=== PATIENT | male | born 1980 | race Caucasian/White ===

== ENCOUNTER 2017-05-13 13:00 | Emergency (ER) | payer MEDICAID ==
[~2017-05-13] VITALS: Ht 175.3 cm; Wt 96.2 kg
[~2017-05-13 13:00] MED LIST: HYDR1TAB PO
--- NOTE | 2017-05-13 14:07 | ED General ---
General Chief Complaint: Bite-Animal/Human/Insect Stated Complaint: DOG BITE TO GENITALS/BLEEDING Nursing Triage Note: Pt reports he was mowing a friend's yard when an unknown dog jumped up and bit his genitals. Pt does not know this dog. Pt states he did not notice bite at the time of occurrence, his roommate at the nursing home where he lives noted blood on his jeans several hours later and pt looked and noticed bite katz. Bleeding controlled upon arrival to ED. Nursing Sepsis Screen: No Definite Risk Source of Information: Patient Exam Limitations: No Limitations (RANGEL GAMBLE) History of Present Illness Time Seen by Provider: 14:07 Initial Comments 36 yo male patient presents to the ED with c/o dog bite to the scrotum. States he was mowing a friend's yard when an unknown dog jumped up and bit his genitals. Initially did not realize he had an injury. States when he went inside a roommate noticed blood on the patient's jeans. staff weapons officer Cecil Yang states patient is unable to give a description of the dog or exactly what part of town the dog was in. Officer Celia is skeptical that he will be able to locate the dog due to poor history from patient. Timing/Duration: 4-6 Hours Severity: Mild (RANGEL GAMBLE) Allergies and Home Medications Allergies Coded Allergies: No Known Drug Allergies (Unverified Allergy, Mild, 09/17/09) Home Medications Amoxicillin/Potassium Clav 1 Each Tablet, 1 EACH PO BID, #14 Ref 0 Prescribed by: RANGEL GAMBLE on 05/13/17 142 Mupirocin Calcium 15 Gm Cream..g., 15 GM TP UD, #1 Ref 0 Apply to the affected area twice daily for 7-10 days. Prescribed by: RANGEL GAMBLE on 05/13/17 1426 Constitutional: no symptoms reported Gastrointestinal: No abdominal pain, No diarrhea, No loss of appetite, No nausea, No vomiting Genitourinary: see HPI, No discharge, No dysuria, No frequency, No hematuria, No pain Musculoskeletal: no symptoms reported Skin: see HPI, other (dog bite to the scrotum) Psychiatric/Neurological: No Symptoms Reported (RANGEL GAMBLE) All Other Systems Reviewed Negative Unless Noted: Yes (Negative excepted noted.) (RANGEL GAMBLE) Past Icvmwrz-Losjop-Yxbxmj Hx Patient Social History Alcohol Use: Rarely Uses Recreational Drug Use: No Smoking Status: Current Someday Smoker Type Used: Cigars Recent Foreign Travel: No Contact w/Someone Who Travel: No Recent Infectious Disease Expo: No Recent Hopitalizations: No (RANGEL GAMBLE) Immunizations Up To Date Tetanus Booster (TDap): More than 5yrs (patient refuses tetanus booster.) (RANGEL GAMBLE) Seasonal Allergies Seasonal Allergies: No (RANGEL GAMBLE) Surgeries HX Surgeries: No (RANGEL GAMBLE) Respiratory Hx Respiratory Disorders: Yes (RANGEL GAMBLE) Cardiovascular Hx Cardiac Disorders: No (RANGEL GAMBLE) Neurological Hx Neurological Disorders: No (RANGEL GAMBLE) Genitourinary Hx Genitourinary Disorders: No (RANGEL GAMBLE) Gastrointestinal Hx Gastrointestinal Disorders: No (RANGEL GAMBLE) Musculoskeletal Hx Musculoskeletal Disorders: No (RANGEL GAMBLE) Psychosocial Hx Psychiatric Problems: Yes (RANGEL GAMBLE) Integumentary HX Skin/Integumentary Disorder: No (RANGEL GAMBLE) Reviewed Nursing Assessment Reviewed/Agree w Nursing PMH: Yes (RANGEL GAMBLE) Family Medical History Significant Family History: No Pertinent Family Hx (RANGEL GAMBLE) Physical Exam Vital Signs Vital Sign - Last 12Hours 05/13/17 13:07 Temp 99.2 Pulse 88 Resp 18 B/P (MAP) 149/84 Pulse Ox 95 O2 Delivery Room Air (ASTER DOMINGUEZ MD) Vital Signs Capillary Refill : Less Than 3 Seconds (RANGEL GAMBLE) General Appearance: No Apparent Distress, WD/WN Respiratory: Lungs Clear, Normal Breath Sounds, No Respiratory Distress Cardiovascular: Regular Rate, Rhythm, No Murmur, Normal Peripheral Pulses Gastrointestinal: Normal Bowel Sounds, No Organomegaly, Non Tender, Soft Genital/Rectal: No Blood at Uretheral Meatus, Other (small abrasion noted on the rt anterior scrotum. small puncture noted on the anterior left scrotum with a 1.5 cm superficial partial thickness laceration of the left lateral scrotum. no evidence of testicular injury. no active bleeding or tenderness noted. ) Back: Normal Inspection Extremity: Normal Capillary Refill, Normal Inspection Neurologic/Psychiatric: Alert, Oriented x3, Normal Mood/Affect Skin: Normal Color, Warm/Dry, Other (small abrasion noted on the rt anterior scrotum. small puncture noted on the anterior left scrotum with a 1.5 cm superficial partial thickness laceration of the left lateral scrotum. no evidence of testicular injury. no active bleeding or tenderness noted. ) ( RANGEL GAMBLE) Progress/Results/Core Measures Results/Orders Blood Pressure Mean: 105 Progress Note : Progress Note Patient seen with EFRA Parekh. Patient has a puncture type wounds to the scrotum on the left side with one small superficial laceration as described. Patient does not know where the dog came from that bit him and law enforcement is unable to find the dog. Rabies vaccination is recommended as well as tetanus vaccination. Patient adamantly refused both. I did discuss with him the concerns related to rabies and he states that he will take his chances. We will use topical antibiotic and oral antibiotic for the wounds. Patient states she will do that. Discharged as per EFRA Parekh. (ASTER DOMINGUEZ MD) Departure Communication Progress Notes Patient seen and evaluated with tenderness Dr. Terrence M.D. Patient refuses rabies immunoglobulin, rabies vaccination, and tetanus vaccination. States he is afraid of needles. All risks, benefits, and possible consultations associated with not receiving tetanus and rabies vaccinations were discussed with the patient and his family caseworker. Patient continues to decline vaccinations. family services manager discussed patient's refusal with his guardian. Guardian does not want rabies and tetanus injections given if patient refuses them. Patient given outpatient orders for rabies vaccination and tetanus booster if he decides he would like to receive these after dsch from the ED. (RANGEL GAMBLE) Impression Impression: Primary Impression: Dog bite Qualified Codes: W54.0XXA - Bitten by dog, initial encounter Disposition: 01 HOME, SELF-CARE Condition: Improved Departure-Patient Inst. Decision time for Depature: 14:21 (RANGEL GAMBLE) Referrals: YAZ ANGELO (PCP/Family) Primary Care Physician Patient Instructions: Animal Bites (DC), Rabies (DC), Rabies Vaccine Add. Discharge Instructions: All discharge instructions reviewed with patient and/or family. Voiced understanding. Medications as instructed. Tylenol extra strength tqio-lzu-[id number] as directed for pain. Ibuprofen 800 mg by mouth every 8 hours as needed for pain. Rabies vaccination today worse and is possible. Repeat rabies vaccination on day 3 (05/16/17); day 7 (05/20/17); and day 14 (05/27/17). Tetanus vaccination as soon as possible. Follow-up with Clementina Angelo APRN as an outpatient for recheck. Call for appointment time. Return to the emergency department for worsened pain, redness, fever, drainage, difficulty with urination, blood in the urine, changes in behavior, paralysis, difficulty drinking, choking, numbness, itching, hallucinations, agitation, difficulty walking, confusion, or any other concerns. Scripts Mupirocin Calcium (Bactroban) 15 Gm Cream..g. 15 GM TP UD, #1 TUBE 0 Refills Apply to the affected area twice daily for 7-10 days. Prov: RANGEL GAMBLE 05/13/17 Amoxicillin/Potassium Clav (Augmentin 875-125 Tablet) 1 Each Tablet 1 EACH PO BID, #14 TAB 0 Refills Prov: RANGEL GAMBLE 05/13/17 RANGEL GAMBLE May 13, 2017 14:07 ASTER DOMINGUEZ MD May 15, 2017 17:04
[2017-05-13] MEDS ORDERED: MUPI15CR TP (14:26)
[2017-05-13] MEDS ORDERED: AMOX-358 PO (14:26)
[2017-05-13 14:32] VITALS: BP 145/80
--- OUTSIDE RECORDS SUMMARY | 2017-05-23 19:22 | XMS REPORT | Continuity of Care Document ---
Author Author [facility] Address Unknown Phone Unavailable Allergies Active Description Code Type Severity Reaction Onset Reported/Identified Relationship to Patient Clinical Status Yes No Known Drug Allergies [id number] Drug Allergy Mild N/A 09/17/2009 Medications Problems Date Dx Coded Attending Type Code Diagnosis [facility] 06/28/2009 [facility], CECI R 462 PHARYNGITIS ACUTE 09/19/[facility] V70.3 SPORTS/SCHOOL EXAM 09/19/2009 [facility], CECI R V70.3 SPORTS/SCHOOL EXAM 08/23/2010 [facility], CECI R V20.2 WELL CHILD 08/23/2010 [facility], CECI R V20.2 WELL CHILD 08[facility]11/[facility]9 AD ADJ D/O NOS 08/11/2013 [facility]9 AD ADJ D/O NOS Procedures Code [place] [address] PSYCH DIAGNOSTIC EVALUATION 08/12/2013 Results Encounters ACCT No. Visit Date/Time Discharge Status Pt. Type Provider Facility Loc./Unit Complaint [id number] 09/23/2013 13:59:00 09/23/2013 23: 59:59 [facility] Outpatient CECI NORIEGA [id number] 08/11/2013 09:49:00 08/11/2013 23: 59:59 [facility] Outpatient JOSE CECI ADKINS
== END 2017-05-13 14:34 | disposition home or self-care (01) ==
LOC: EDUNIT# 13:00 → ER 13:03
DX: S30.863A Insect bite (nonvenomous) of scrotum and testes, initial encounter (principal); F17.290 Nicotine dependence, other tobacco product, uncomplicated; W54.0XXA Bitten by dog, initial encounter; Y92.096 Garden or yard of other non-institutional residence as the place of occurrence of the external cause
CPT/HCPCS: 99283

== ENCOUNTER 2017-12-23 17:30 | Emergency (ER) | payer MEDICAID ==
[~2017-12-23] VITALS: Ht 182.9 cm; Wt 99.8 kg
[~2017-12-23 17:30] MED LIST changes: +AMOX-358 PO; +MUPI15CR TP
--- OUTSIDE RECORDS SUMMARY | 2017-12-23 17:36 | XMS REPORT | Continuity of Care Document ---
Author Author [facility] Address Unknown Phone Unavailable Allergies Active Description Code Type Severity Reaction Onset Reported/Identified Relationship to Patient Clinical Status Yes No Known Drug Allergies [id number] Drug Allergy Mild N/A 09/17/2009 Medications There is no data. Problems Date Dx Coded Attending Type Code Diagnosis Diagnosed By [facility]2009 [facility] PH[facility] ACUTE 06/28/2009 [facility], CECI R 462 PHARYNGITIS ACUTE 09/19/2009 [facility], CECI R V70.3 SPORTS/SCHOOL EXAM 09/19/2009 [facility], CECI R V70.3 SPORTS/SCHOOL EXAM 08/23/2010 [facility], CECI R V20.2 WELL CHILD 08/23/2010 [facility], CECI R V20.2 WELL CHILD 08/11/2013 [facility], CECI R 309.9 AD ADJ D/O NOS 08/11/2013 [facility], CECI R 309.9 AD ADJ D/O NOS 05/13/2017 RANGEL GHOSH Ot F17.290 NICOTINE DEPENDENCE, OTHER TOBACCO PRODU 05/13/2017 RANGEL GHOSH Ot S30.863A INSECT BITE (NONVENOMOUS) OF SCROTUM AND 05/13/2017 RANGEL GHOSH Ot W54.0XXA BITTEN BY DOG, INITIAL ENCOUNTER 05/13/2017 RANGEL GHOSH Ot 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 Encounters ACCT No. Visit Date/Time Discharge Status Pt. Type Provider Facility Loc./Unit Complaint [id number] 09/23/2013 13:59:00 09/23/2013 23:59:59 [id number] 08/11/2013 09:49:00 08/11/2013 23:59:59 [facility] [id number] 05/13/2017 13:03:00 05/13/2017 14:34:00 DIS Emergency RANGEL GHOSH [facility] ER DOG BITE TO GENITALS/ BLEEDING [id number] 03/03/2015 15:28:00 03/03/2015 23:59:59 CLS Preadmit ARACELI DEVLIN [facility] REHAB [id number] 02/23/2015 15:24:00 Document Registration
--- NOTE | 2017-12-23 17:43 | ED Chest Pain ---
General Stated Complaint: CP Source: patient Exam Limitations: no limitations History of Present Illness Date Seen by Provider: Dec 23, 2017 Time Seen by Provider: 17:41 Initial Comments To ER with major case detective from [place] support services with sharp chest pain began 40 minutes ago while walking to [employer] to eat dinner. Just prior to this he been helping a friend move some tables and he had 4 Smirnoffs to drink. Chest pain is gone now and he has no shortness of breath. He has no history of this. Timing/Duration: 1/2 hour Severity/Quality: moderate Radiation: no radiation Activities at Onset: none ASA po ENGINE MONITOR: No NTG SL ENGINE MONITOR: No Allergies and Home Medications Allergies Coded Allergies: No Known Drug Allergies (Unverified Allergy, Mild, 09/17/09) Home Medications Amoxicillin/Potassium Clav 1 Each Tablet, 1 EACH PO BID Prescribed by: RANGEL GAMBLE on 05/13/171425 Mupirocin Calcium 15 Gm Cream..g., 15 GM TP UD Apply to the affected area twice daily for 7-10 days. Prescribed by: RANGEL GAMBLE on 05/13/17 142 Patient Home Medication List Home Medication List Reviewed: Yes Review of Systems Constitutional: see HPI EENTM: No Symptoms Reported Respiratory: No Symptoms Reported Cardiovascular: No Symptoms Reported, See HPI, Chest Pain Gastrointestinal: No Symptoms Reported Genitourinary: No Symptoms Reported Musculoskeletal: no symptoms reported Skin: no symptoms reported Psychiatric/Neurological: No Symptoms Reported Endocrine: No Symptoms Reported Hematologic/Lymphatic: No Symptoms Reported Past Metnjvc-Ptvjwk-Hyiduu Hx Patient Social History Type Used: Cigars Recent Foreign Travel: No Contact w/Someone Who Travel: No Recent Hopitalizations: No Immunizations Up To Date Tetanus Booster (TDap): More than 5yrs Seasonal Allergies Seasonal Allergies: No Surgeries History of Surgeries: No Respiratory History of Respiratory Disorde: Yes (uses inhaler prn) Neurological History of Neurological Disord: No Genitourinary History of Genitourinary Disor: No Gastrointestinal History of Gastrointestinal Di: No Musculoskeletal History of Musculoskeletal Dis: No Endocrine History of Endocrine Disorders: No HEENT History of HEENT Disorders: No Cancer History of Cancer: No Psychosocial History of Psychiatric Problem: No Integumentary History of Skin or Integumenta: No Blood Transfusions History of Blood Disorders: No Family Medical History Significant Family History: No Pertinent Family Hx Physical Exam Vital Signs Capillary Refill : General Appearance: No Apparent Distress, WD/WN HEENT: PERRL/EOMI, TMs Normal Neck: Full Range of Motion, Normal Inspection Respiratory: Normal Breath Sounds, No Accessory Muscle Use, No Respiratory Distress Cardiovascular: Regular Rate, Rhythm, Normal Peripheral Pulses Gastrointestinal: Normal Bowel Sounds, Non Tender, Soft Neurologic/Psychiatric: Alert, Oriented x3, No Motor/Sensory Deficits Skin: Normal Color, Warm/Dry Progress/Results/Core Measures Results/Orders Lab Results Laboratory Tests Test 12/23/17 18:00 12/23/17 18:30 Range/Units White Blood Count 12.4 H 4.3-11.0 10^3/uL Red Blood Count 5.35 4.35-5.85 10^6/uL Hemoglobin 16.6 13.3-17.7 G/DL Hematocrit 48 40-54 % Mean Corpuscular Volume 89 80-99 FL Mean Corpuscular Hemoglobin 31 25-34 PG Mean Corpuscular Hemoglobin Concent 35 32-36 G/DL Red Cell Distribution Width 13.8 10.0-14.5 % Platelet Count 387 130-400 10^3/uL Mean Platelet Volume 9.0 7.4-10.4 FL Neutrophils (%) (Auto) 72 42-75 % Lymphocytes (%) (Auto) 18 12-44 % Monocytes (%) (Auto) 9 0-12 % Eosinophils (%) (Auto) 1 0-10 % Basophils (%) (Auto) 0 0-10 % Neutrophils # (Auto) 8.9 H 1.8-7.8 X 10^3 Lymphocytes # (Auto) 2.2 1.0-4.0 X 10^3 Monocytes # (Auto) 1.1 H 0.0-1.0 X 10^3 Eosinophils # (Auto) 0.2 0.0-0.3 10^3/uL Basophils # (Auto) 0.1 0.0-0.1 10^3/uL D-Dimer < 0.27 0.00-0.49 UG/ML Sodium Level 138 135-145 MMOL/L Potassium Level 3.8 3.6-5.0 MMOL/L Chloride Level 107 98-107 MMOL/L Carbon Dioxide Level 25 21-32 MMOL/L Anion Gap 6 5-14 MMOL/L Blood Urea Nitrogen 9 7-18 MG/DL Creatinine 0.83 0.60-1.30 MG/DL Estimat Glomerular Filtration Rate > 60 BUN/Creatinine Ratio 11 Glucose Level 83 70-105 MG/DL Calcium Level 9.0 8.5-10.1 MG/DL Total Bilirubin 0.5 0.1-1.0 MG/DL Aspartate Amino Transf (AST/SGOT) 23 5-34 U/L Alanine Aminotransferase (ALT/SGPT) 18 0-55 U/L Alkaline Phosphatase 65 40-136 U/L Troponin I < 0.30 <0.30 NG/ML Total Protein 7.6 6.4-8.2 GM/DL Albumin 4.1 3.2-4.5 GM/DL Serum Alcohol < 10 <10 MG/DL Urine Color YELLOW Urine Clarity CLEAR Urine pH 6 5-9 Urine Specific [place] 1.015 L 1.016-1.022 Urine Protein NEGATIVE NEGATIVE Urine Glucose (UA) NEGATIVE NEGATIVE Urine Ketones NEGATIVE NEGATIVE Urine Nitrite POSITIVE H NEGATIVE Urine Bilirubin NEGATIVE NEGATIVE Urine Urobilinogen NORMAL NORMAL MG/DL Urine Leukocyte Esterase 2+ H NEGATIVE Urine RBC (Auto) NEGATIVE NEGATIVE Urine RBC NONE /HPF Urine WBC 10-25 H /HPF Urine Squamous Epithelial Cells 2-5 /HPF Urine Crystals NONE /LPF Urine Bacteria LARGE H /HPF Urine Casts NONE /LPF Urine Mucus NEGATIVE /LPF Urine Culture Indicated YES Urine Opiates Screen NEGATIVE NEGATIVE Urine Oxycodone Screen NEGATIVE NEGATIVE Urine Methadone Screen NEGATIVE NEGATIVE Urine Propoxyphene Screen NEGATIVE NEGATIVE Urine Barbiturates Screen NEGATIVE NEGATIVE Ur Tricyclic Antidepressants Screen NEGATIVE NEGATIVE Urine Phencyclidine Screen NEGATIVE NEGATIVE Urine Amphetamines Screen NEGATIVE NEGATIVE Urine Methamphetamines Screen NEGATIVE NEGATIVE Urine Benzodiazepines Screen NEGATIVE NEGATIVE Urine Cocaine Screen NEGATIVE NEGATIVE Urine Cannabinoids Screen NEGATIVE NEGATIVE My Orders Orders - SIVAKUMAR TAMAYO DINKEY OPERATOR Cbc With Automated Diff (12/23/17 17:39) Comprehensive Metabolic Panel (12/23/17 17:39) Ua Culture If Indicated (12/23/17 17:39) Drug Screen Stat (Urine) (12/23/17 17:39) Alcohol (12/23/17 17:39) Troponin I (12/23/17 17:39) Ekg Tracing (12/23/17 17:39) Fibrin Degradation Products (12/23/17 17:39) Chest Pa/Lat (2 View) (12/23/17 17:39) Urine Culture (12/23/17 18:30) Departure Impression Impression: Primary Impression: Chest pain Additional Impression: Urinary tract infection Disposition: 01 HOME, SELF-CARE Condition: Stable Departure-Patient Inst. Decision time for Depature: 18:51 Referrals: YAZ ANGELO (PCP/Family) Primary Care Physician Patient Instructions: Chest Pain (DC) Add. Discharge Instructions: 1. Call a director cost of your choosing to make an appointment to be seen to evaluate your chest pain and the changes on your EKG 2. Return to ER for any concerns Scripts Sulfamethoxazole/Trimethoprim (Bactrim Ds Tablet) 1 Each Tablet 1 EACH PO BID, #20 TAB Prov: SIVAKUMAR TAMAYO APRN 12/23/17 SIVAKUMAR TAMAYO APRN Dec 23, 2017 17:43
--- NOTE | 2017-12-23 18:08 | Diagnostic Imaging Report ---
CLINICAL INDICATION: Patient with chest pain starting today. EXAM: Chest x-ray PA and lateral views. COMPARISONS: Chest x-ray dated 09/17/2009. FINDINGS: Lungs/pleura: Lungs are clear. There is no pneumothorax. There is no pleural effusion. Mediastinum: Unremarkable. Pulmonary vasculature: Unremarkable. Heart: Unremarkable. Bones/extrathoracic soft tissue: Unremarkable. IMPRESSION: There is no radiographic evidence of acute cardiopulmonary process. Dictated by: Dictated on workstation # [id number]
[2017-12-23 18:15] LABS: BASOPHILS # (AUTO) 0.1 10^3/uL (0.0-0.1); BASOPHILS % (AUTO) 0 % (0-10); EOSINOPHILS # (AUTO) 0.2 10^3/uL (0.0-0.3); EOSINOPHILS % (AUTO) 1 % (0-10); HEMATOCRIT 48 % (40-54); HEMOGLOBIN 16.6 G/DL (13.3-17.7); LYMPHOCYTES # (AUTO) 2.2 X 10^3 (1.0-4.0); LYMPHOCYTES % (AUTO) 18 % (12-44); MEAN CORPUSCULAR HEMOGLOBIN 31 PG (25-34); MEAN CORPUSCULAR HGB CONC 35 G/DL (32-36); MEAN CORPUSCULAR VOLUME 89 FL (80-99); MONOCYTES # (AUTO) 1.1 X 10^3 (0.0-1.0); MONOCYTES % (AUTO) 9 % (0-12); NEUTROPHILS # (AUTO) 8.9 X 10^3 (1.8-7.8); NEUTROPHILS % (AUTO) 72 % (42-75); PLATELET COUNT 387 10^3/uL (130-400); RED BLOOD COUNT 5.35 10^6/uL (4.35-5.85); RED CELL DISTRIBUTION WIDTH 13.8 % (10.0-14.5); WHITE BLOOD COUNT 12.4 10^3/uL (4.3-11.0)
[2017-12-23 18:35] LABS: ALANINE AMINOTRANSFERASE 18 U/L (0-55); ALBUMIN 4.1 GM/DL (3.2-4.5); ALKALINE PHOSPHATASE 65 U/L (40-136); BILIRUBIN,TOTAL 0.5 MG/DL (0.1-1.0); BUN/CREATININE RATIO 11; CARBON DIOXIDE 25 MMOL/L (21-32); CHLORIDE 107 MMOL/L (98-107); CREATININE SERUM 0.83 MG/DL (0.60-1.30); GFR ESTIMATED > 60; GLUCOSE 83 MG/DL (70-105); POTASSIUM 3.8 MMOL/L (3.6-5.0); SODIUM 138 MMOL/L (135-145); TOTAL PROTEIN 7.6 GM/DL (6.4-8.2)
[2017-12-23 18:47] LABS: BILIRUBIN,URINE NEGATIVE (NEGATIVE); CLARITY,URINE CLEAR; COLOR,URINE YELLOW; GLUCOSE, URINE (UA) NEGATIVE (NEGATIVE); KETONES,URINE NEGATIVE (NEGATIVE); LEUKOCYTE ESTERASE ,URINE 2+ (NEGATIVE); NITRITE,URINE POSITIVE (NEGATIVE); PH,URINE 6 (5-9); PROTEIN,URINE NEGATIVE (NEGATIVE); UROBILINOGEN,URINE NORMAL (NORMAL)
[2017-12-23 18:57] LABS: AMPHETAMINE SCREEN, URINE NEGATIVE (NEGATIVE); BARBITURATE SCREEN URINE NEGATIVE (NEGATIVE); BENZODIAZEPINES SCREEN URINE NEGATIVE (NEGATIVE); CANNABINOID SCREEN, URINE NEGATIVE (NEGATIVE); COCAINE SCREEN URINE NEGATIVE (NEGATIVE); METHADONE STAT NEGATIVE (NEGATIVE); METHAMPHETAMINE SCREEN URINE S NEGATIVE (NEGATIVE); OPIATE SCREEN URINE NEGATIVE (NEGATIVE); OXYCODONE STAT NEGATIVE (NEGATIVE); PROPOXYPHENE STAT NEGATIVE (NEGATIVE); TRICYCLIC ANTIDEPRESSANTS SCRE NEGATIVE (NEGATIVE)
[2017-12-23 19:04] LABS: BACTERIA,URINE LARGE /HPF
[2017-12-23] MEDS ORDERED: SULF1TAB35 PO (19:07)
[2017-12-23 19:10] VITALS: BP 138/88
== END 2017-12-23 19:10 | disposition home or self-care (01) ==
LOC: EDUNIT# 17:30 → ER 17:32
DX: R07.9 Chest pain, unspecified (principal); N39.0 Urinary tract infection, site not specified
CPT/HCPCS: 36415; 71046; 80053; 80306; 80320; 81000; 84484; 85025; 85379; 87088; 87186

== ENCOUNTER 2022-08-15 14:33 | Emergency (ER) | payer MEDICAID ==
[~2022-08-15] VITALS: Ht 175.3 cm; Wt 111.5 kg
[~2022-08-15 14:33] MED LIST changes: +SULF1TAB38 PO
--- NOTE | 2022-08-15 15:11 | ED Upper Extremity ---
General Chief Complaint: Upper Extremity Stated Complaint: LT HAND INJURY Nursing Triage Note: PT AMB TO TRIAGE WITH COMPLAINT OF LEFT HAND/FINGER PAIN. PT STATES HE TRIPPED OVER A GARDEN HOSE LANDING ON HAND. Source: patient, caregiver Exam Limitations: no limitations History of Present Illness Date Seen by Provider: Aug 15, 2022 Time Seen by Provider: 14:59 Initial Comments Here with report of left hand pain after tripping over the water hose at his residence. Tetanus is up-to-date. Denies other injury. Complains of pain around the fourth and fifth MCP area with small abrasion to the IP joint on the fourth finger dorsum. Currently using an ice pack. Care team is here to assist and they would like x-ray of the hand which is reasonable. Onset: just prior to arrival (Approximately an hour ago) Severity: mild Pain/Injury Location: left hand, left 4th finger, left 5th finger Method of Injury: fell Modifying Factors: Improves With Immobilization; Worse With Movement; Improves With Rest Allergies and Home Medications Allergies Coded Allergies: No Known Drug Allergies (Unverified Allergy, Mild, 09/17/09) Patient Home Medication List Home Medication List Reviewed: Yes Amoxicillin/Potassium Clav (Augmentin 875-125 Tablet) 1 Each Tablet, 1 EACH PO BID Prescribed by: RANGEL GAMBLE on 05/13/17 1426 Mupirocin Calcium (Bactroban) 15 Gm Cream..g., 15 GM TP UD Prescribed by: RANGEL GAMBLE on 05/13/17 1426 Sulfamethoxazole/Trimethoprim (Bactrim Ds Tablet) 1 Each Tablet, 1 EACH PO BID Prescribed by: SIVAKUMAR TAMAYO on 12/23/17 1907 Review of Systems Constitutional: see HPI; No fever, No weakness EENTM: No nose congestion, No throat pain Cardiovascular: no symptoms reported Musculoskeletal: joint pain, muscle pain Skin: No change in color; lesions Psychiatric/Neurological: No Symptoms Reported Past Uitkbmx-Rkhwwj-Hefwrc Hx Patient Social History Tobacco Use?: Yes Tobacco type used: Cigarettes Smoking Status: Current Everyday Smoker Use of E-Cig and/or Vaping dev: No Substance use?: No Alcohol Use?: No Pt feels they are or have been: No Immunizations Up To Date Tetanus Booster (TDap): More than 5yrs Seasonal Allergies Seasonal Allergies: No Past Medical History Surgeries: No Respiratory: Yes (uses inhaler prn) Cardiac: No Neurological: No Genitourinary: No Gastrointestinal: No Musculoskeletal: No Endocrine: No HEENT: No Cancer: No Psychosocial: Yes Integumentary: No Blood Disorders: No Family Medical History Reviewed Nursing Family Hx No Pertinent Family Hx Physical Exam Vital Signs Vital Signs - First Documented 08/15/22 14:42 Pulse 80 Resp 16 B/P (MAP) 153/92 (112) Pulse Ox 95 O2 Delivery Room Air Capillary Refill : Less Than 3 Seconds Height, Weight, BMI Height: 6'0" Weight: 220lbs. oz. 99.196258tx; 36.00 BMI Method:Estimated General Appearance: WD/WN, no apparent distress Cardiovascular: regular rate, rhythm, no murmur Respiratory: lungs clear, normal breath sounds Elbow/Forearm: normal inspection, no evidence of injury, Left Hand: Left, abrasions (Left fourth digit at the IP joint on the dorsum with bleeding controlled), soft tissue tenderness, swelling (Left fourth and fifth MCP area) Neurologic/Psychiatric: alert, normal mood/affect Skin: normal color, warm/dry, other (Abrasion as above) Progress/Results/Core Measures Results/Orders My Orders Orders - ASTER DOMINGUEZ MD Hand, Left, 3 Views (08/15/22 15:06) Vital Signs/I&O 08/15/22 14:42 Pulse 80 Resp 16 B/P (MAP) 153/92 (112) Pulse Ox 95 O2 Delivery Room Air Blood Pressure Mean: 112 Progress Progress Note : Progress Note Seen and evaluated. We will get x-ray of the left hand to evaluate for fracture. Wound to be cleaned by nursing and cover with antibiotic ointment and dressing. Monitor patient. 1542: X-rays reviewed by me shows no acute fracture to the area of the left fourth or fifth digit or MCP. Radiology does report potential fracture in the first digit distal phalanx. Recommend correlation with evaluation. I did reevaluate the first finger and he is not having any pain there at all so I do not believe this is an acute fracture. Discharged home with return precautions. Patient and caregiver verbalized understanding of instructions and agreement with plan. Diagnostic Imaging Diagonstic Imaging: Xray Plain Films/CT/US/NM/MRI: hand Comments [facility] [place] NAME: DEANA PAYTON [facility] REC#: [id number] PT STATUS: REG ER : 1980 PHYSICIAN: ASTER DOMINGUEZ MD ADMIT DATE: 08/15/22/ER Draft Date of Exam:08/15/22 HAND, LEFT, 3 VIEWS EXAMINATION: Left hand radiographs, 3 views. COMPARISON: None. HISTORY: 41-year-old male, left hand pain after injury. FINDINGS: There is an oblique lucency in the first distal phalanx which is suspicious for a nondisplaced acute fracture. There is likely intra-articular fracture extension. Recommend correlation for potential focal pain at this exact site. There is no otherwise identified potentially acute fracture. There is no identified subluxation or dislocation. There is no radiopaque foreign body. IMPRESSION: 1. Potential nondisplaced intra-articular fracture of the first distal phalanx without gross offset of the articulating surface. Recommend correlation for focal pain at this exact site. Dictated on workstation # [id number] Dict: 08/15/22 1532 Trans: 08/15/22 1535 [facility] [id number] Interpreted by: TRACY SOLOMON MD Electronically signed by: Reviewed: Reviewed by Me Departure Impression Primary Impression: Contusion of hand Qualified Codes: S60.222A - Contusion of left hand, initial encounter Additional Impression: Abrasion Disposition: 01 HOME, SELF-CARE Condition: Stable Departure-Patient Inst. Decision time for Depature: 15:44 Referrals: YAZ ANGELO (PCP/Family) Primary Care Physician Patient Instructions: Contusion (DC), Skin Abrasions Add. Discharge Instructions: All discharge instructions reviewed with patient and/or family. Voiced understanding. Use antibiotic ointment and Band-Aid over wound changing once or twice daily as needed for the next several days and then as needed thereafter. You may use ice packs to area of concern for swelling using that 20 minutes/h as needed over the next 1 to 2 days. You may elevate the hand to reduce swelling. You may take [id number] Tylenol/acetaminophen 500 mg 2 tablets every 6-8 hours as needed for pain. Return for worse pain, swelling, weakness, or other concerns as needed. ASTER DOMINGUEZ MD Aug 15, 2022 15:11
--- NOTE | 2022-08-15 15:35 | Diagnostic Imaging Report ---
EXAMINATION: Left hand radiographs, 3 views. COMPARISON: None. HISTORY: 41-year-old male, left hand pain after injury. FINDINGS: There is an oblique lucency in the first distal phalanx which is suspicious for a nondisplaced acute fracture. There is likely intra-articular fracture extension. Recommend correlation for potential focal pain at this exact site. There is no otherwise identified potentially acute fracture. There is no identified subluxation or dislocation. There is no radiopaque foreign body. IMPRESSION: 1. Potential nondisplaced intra-articular fracture of the first distal phalanx without gross offset of the articulating surface. Recommend correlation for focal pain at this exact site. Dictated by: Dictated on workstation # [id number]
[2022-08-15 15:54] VITALS: BP 153/92
== END 2022-08-15 15:54 | disposition home or self-care (01) ==
LOC: EDUNIT# 14:33 → ER 14:38
DX: S60.222A Contusion of left hand, initial encounter (principal); F17.210 Nicotine dependence, cigarettes, uncomplicated; Z28.310 Unvaccinated for COVID-19; W01.0XXA Fall on same level from slipping, tripping and stumbling without subsequent striking against object, initial encounter
CPT/HCPCS: 73130